=== PATIENT | male | born 1975 | race Caucasian/White ===

== ENCOUNTER 2021-10-20 09:23 | Emergency (ER) | payer BC, OTHER ==
[2021-10-20] MEDS ORDERED: Sodium Chloride 0.9% 10 ML Syringe FLUSH PRN (09:42)
[2021-10-20] MEDS ORDERED: Ondansetron 4 MG/2 ML SDV IVPUSH ONE (09:44)
[2021-10-20] MEDS ORDERED: Sodium Chloride 0.9% 1,000 ML IV SCH (09:45)
[2021-10-20 10:16] LABS: CHLORIDE,CL 103 mmol/L (98-107); SODIUM,NA 141 mmol/L (136-145)
[2021-10-20 10:18] LABS: ANION GAP 16.2 mmol/L (5-15)
--- NOTE | 2021-10-20 10:32 | CR ---
[id number] RAD/RAD Abd Flat and Upright 2V EXAM: RAD Abd Flat and Upright 2V INDICATION: ABDOMINAL PAIN. COMPARISON: None. DISCUSSION: Unobstructed bowel gas pattern. No radiographically evident pneumoperitoneum. IMPRESSION: No acute findings in the abdomen. Riccardo Jones DO 10/20/21 1031 Thank you for allowing us to participate in the care of your patient.
[2021-10-20] MEDS ORDERED: Iopamidol 612 MG/ML 100 ML Bottle IVPUSH ONE (11:02)
--- NOTE | 2021-10-20 11:27 | CT ---
[id number] CT/CT Abdomen Pelvis W IV EXAM: CT Abdomen Pelvis W IV INDICATION: ABDOMINAL PAIN, NAUSEA, VOMITING. COMPARISON: None. DISCUSSION: Fluid-filled nondilated proximal to mid small bowel, favor recent ingestion over an ileus, enteritis or early/partial obstruction. Small fat-containing bilateral inguinal hernias. Mild dependent atelectasis in the lung bases. 11 mm cyst mid to upper pole right kidney. Tiny nonobstructing left intrarenal calculus. Mild hepatic steatosis. Prior appendectomy. Scattered diverticula of the colon without evidence of diverticulitis. Mild chronic appearing lower thoracic compression fractures. The osseous structures are otherwise unremarkable. The pancreas, spleen, gallbladder, and adrenal glands are normal in appearance appearance. No adenopathy, free air free fluid. IMPRESSION: 1. Fluid-filled nondilated proximal to mid small bowel loops. These findings may relate to recent fluid ingestion, but could be seen with enteritis, ileus or very early/partial obstruction. Water-soluble small bowel series could provide further evaluation. Kane Dash MD 10/20/21 0485 Thank you for allowing us to participate in the care of your patient.
--- NOTE | 2021-10-20 11:39 | EDM.PDOC ---
ED HPI GENERAL MEDICAL PROBLEM - General Chief Complaint: Abdominal Pain Stated Complaint: NAUSEA,VOMITING Time Seen by Provider: 10/20/21 09:30 Source of Information: Reports: Patient History Limitations: Reports: No Limitations - History of Present Illness INITIAL COMMENTS - FREE TEXT/NARRATIVE: Pt. presents to ER with complaints of nausea and vomiting, as well as abdominal cramping. Denies any fever or chills. No cough or chest congestion. Denies any chest pain or shortness of breath. Pt. denies any ill contacts. No melena, hematochezia, or hematemesis. Denies any lightheadedness. No palpitations. Pt. has been vaccinated for covid, and has had the virus as well. Pt. states that the symptoms started this AM. He is unsure how many times he has vomited/had diarrhea. Onset: Today Onset Date: 10/20/21 Location: Reports: Abdomen Severity: Moderate Associated Symptoms: Reports: Nausea/Vomiting - Related Data Allergies Allergy/AdvReac Type Severity Reaction Status Date / Time No Known Allergies Allergy Verified 10/31/14 11:53 Home Meds: Home Meds Codeine Phosphate/Guaifenesin [Guaiatussin AC Liquid] 10 ml PO Q6HR PRN #150 liquid 10/31/14 [Rx] Oseltamivir Phosphate [Tamiflu] 75 mg PO BID #10 capsule 10/31/14 [Rx] Past Medical History - Past Health History Medical/Surgical History: Denies Medical/Surgical History ED ROS GENERAL - Review of Systems Review Of Systems: See Below Constitutional: Reports: No Symptoms. Denies: Fever, Chills, Malaise, Weakness, Fatigue HEENT: Reports: No Symptoms Respiratory: Reports: No Symptoms Cardiovascular: Reports: No Symptoms Endocrine: Reports: No Symptoms GI/Abdominal: Reports: Abdominal Pain, Diarrhea, Nausea, Vomiting. Denies: Flavio k Stool, Bloody Stool : Reports: No Symptoms Musculoskeletal: Reports: No Symptoms Skin: Reports: No Symptoms Neurological: Reports: No Symptoms Psychiatric: Reports: No Symptoms Hematologic/Lymphatic: Reports: No Symptoms Immunologic: Reports: No Symptoms ED EXAM, GENERAL - Physical Exam Exam: See Below Exam Limited By: No Limitations General Appearance: Alert, WD/WN, No Apparent Distress Throat/Mouth: Normal Inspection, Normal Lips, Normal Teeth, Normal Gums, Normal Oropharynx, Normal Voice, No Airway Compromise Head: Atraumatic, Normocephalic Neck: Normal Inspection, Supple, Non-Tender, Full Range of Motion Respiratory/Chest: No Respiratory Distress, Lungs Clear, Normal Breath Sounds, No Accessory Muscle Use, Chest Non-Tender Cardiovascular: Normal Peripheral Pulses, Regular Rate, Rhythm, No Edema, No Gallop, No JVD, No Murmur Peripheral Pulses: 4+: Radial (L) GI/Abdominal: Normal Bowel Sounds, Soft, No Organomegaly, No Distention, No Mass, Tender (diffusely tender) (Male) Exam: Deferred Rectal (Males) Exam: Deferred Back Exam: Normal Inspection, Full Range of Motion Extremities: Normal Inspection, Normal Range of Motion, Non-Tender, No Pedal Edema, Normal Capillary Refill Neurological: Alert, Oriented, CN II-XII Intact, Normal Cognition, Normal Reflexes, No Motor/Sensory Deficits Psychiatric: Normal Affect, Normal Mood Skin Exam: Warm, Dry, Intact, Normal Color, No Rash Lymphatic: No Adenopathy Course - Vital Signs Last Recorded V/S: Last Vital Signs Temp 36.9 C 10/20/21 09:30 Pulse 106 H 10/20/21 09:30 Resp 18 10/20/21 09:30 BP 109/74 10/20/21 09:30 Pulse Ox 96 10/20/21 09:30 - Orders/Labs/Meds Orders: Active Orders 24 hr Category Date Time Status Peripheral IV Insertion Adult [OM.PC] Routine Oth 10/20/21 09:42 Ordered Labs: Laboratory Tests 10/20/21 10/20/21 10/20/21 Range/Units 09:52 09:52 09:52 WBC 16.7 H (4.0-10.0) x10^3/uL RBC 5.45 (4.5-6.0) x10^6/uL Hgb 15.6 (14.0-18.0) g/dL Hct 45.3 (40.0-52.0) % MCV 83.1 (78.0-93.0) fL MCH 28.6 (26.0-32.0) pg MCHC 34.4 (32.0-36.0) g/dL RDW Coeff of Doris 13.1 (10.0-15.0) % Plt Count 261 (130-400) x10^3/uL Immature Gran % (Auto) 0.10 (0.00-0.43) % Neut % (Auto) 95.3 H (50.0-80.0) % Lymph % (Auto) 2.1 L (25.0-50.0) % [place] % (Auto) 2.3 (2.0-11.0) % Eos % (Auto) 0.1 (0.0-4.0) % Baso % (Auto) 0.1 L (0.2-1.2) % Neut # (Auto) 15.9 H (1.8-7.7) x10^3/uL Lymph # (Auto) 0.4 L (1.0-4.8) x10^3/uL [place] # (Auto) 0.4 (0.0-0.8) x10^3/uL Eos # (Auto) 0.0 (0.0-0.5) x10^3/uL Baso # (Auto) 0.0 (0.0-0.2) x10^3/uL Immature Gran # (Auto) 0.02 (0.00-0.07) x10^3/uL PT 10.3 (9.9-12.5) SEC INR 0.9 L (2.0-3.5) APTT (25.6-32.8) SEC Sodium 141 (136-145) mmol/L Potassium 4.2 (3.5-5.1) mmol/L Chloride 103 (98-107) mmol/L Carbon Dioxide 26 (21-32) mmol/L Anion Gap 16.2 H (5-15) mmol/L BUN 20 H (7-18) mg/dL Creatinine 1.3 (0.70-1.30) mg/dL Est Cr Clr Drug Dosing TNP Estimated GFR (MDRD) 60 Glucose 138 H (70-99) mg/dL Calcium 9.0 (8.5-10.1) mg/dL Corrected Calcium 8.8 (8.5-10.1) mg/dL Phosphorus 2.0 L (2.6-4.7) mg/dL Magnesium 2.0 (1.8-2.4) mg/dL Total Bilirubin 0.5 (0.2-1.0) mg/dL AST 17 (15-37) U/L ALT 34 (16-63) U/L Alkaline Phosphatase 87 (46-116) U/L C-Reactive Protein 1.0 H (<=0.9) mg/dL Total Protein 8.0 (6.4-8.2) g/dL Albumin 4.2 (3.4-5.0) g/dL Globulin 3.8 Albumin/Globulin Ratio 1.11 Lipase 73 (73-393) U/L SARS CoV-2 RNA Rapid CONCHITA (NEGATIVE) 10/20/21 10/20/21 Range/Units 09:52 09:54 WBC (4.0-10.0) x10^3/uL RBC (4.5-6.0) x10^6/uL Hgb (14.0-18.0) g/dL Hct (40.0-52.0) % MCV (78.0-93.0) fL MCH (26.0-32.0) pg MCHC (32.0-36.0) g/dL RDW Coeff of Doris (10.0-15.0) % Plt Count (130-400) x10^3/uL Immature Gran % (Auto) (0.00-0.43) % Neut % (Auto) (50.0-80.0) % Lymph % (Auto) (25.0-50.0) % [place] % (Auto) (2.0-11.0) % Eos % (Auto) (0.0-4.0) % Baso % (Auto) (0.2-1.2) % Neut # (Auto) (1.8-7.7) x10^3/uL Lymph # (Auto) (1.0-4.8) x10^3/uL [place] # (Auto) (0.0-0.8) x10^3/uL Eos # (Auto) (0.0-0.5) x10^3/uL Baso # (Auto) (0.0-0.2) x10^3/uL Immature Gran # (Auto) (0.00-0.07) x10^3/uL PT (9.9-12.5) SEC INR (2.0-3.5) APTT 22.0 L (25.6-32.8) SEC Sodium (136-145) mmol/L Potassium (3.5-5.1) mmol/L Chloride (98-107) mmol/L Carbon Dioxide (21-32) mmol/L Anion Gap (5-15) mmol/L BUN (7-18) mg/dL Creatinine (0.70-1.30) mg/dL Est Cr Clr Drug Dosing Estimated GFR (MDRD) Glucose (70-99) mg/dL Calcium (8.5-10.1) mg/dL Corrected Calcium (8.5-10.1) mg/dL Phosphorus (2.6-4.7) mg/dL Magnesium (1.8-2.4) mg/dL Total Bilirubin (0.2-1.0) mg/dL AST (15-37) U/L ALT (16-63) U/L Alkaline Phosphatase (46-116) U/L C-Reactive Protein (<=0.9) mg/dL Total Protein (6.4-8.2) g/dL Albumin (3.4-5.0) g/dL Globulin Albumin/Globulin Ratio Lipase (73-393) U/L SARS CoV-2 RNA Rapid CONCHITA Negative (NEGATIVE) Meds: Medications Discontinued Medications Generic Name Dose Route Start Last Admin Trade Name Freq PRN Reason Stop Dose Admin Sodium Chloride 1,000 mls @ 1,000 mls/hr 10/20/21 09:45 Normal Saline IV ASDIRECTED LINH Iopamidol 100 ml 10/20/21 11:02 10/20/21 11:04 Iopamidol 612 Mg/Ml 100 Ml Bottle IVPUSH 10/20/21 11:03 100 ml ONETIME ONE Administration Metoclopramide HCl 10 mg 10/20/21 11:42 Metoclopramide 10 Mg/2 Ml Sdv IVPUSH 10/20/21 11:43 ONETIME ONE Ondansetron HCl 4 mg 10/20/21 09:44 10/20/21 09:45 Ondansetron 4 Mg/2 Ml Sdv IVPUSH 10/20/21 09:45 4 mg ONETIME ONE Administration Sodium Chloride 10 ml 10/20/21 09:42 Sodium Chloride 0.9% 10 Ml Syringe FLUSH ASDIRECTED PRN Keep Vein Open - Radiology Interpretation Free Text/Narrative:: Flat and upright abdominal x-ray is negative. CT abdomen and pelvis with IV contast shows fluid filled proximal and mid bowel loop. No free air. No obvious acute obstruction. Departure - Departure Time of Disposition: 12:00 Disposition: Home, Self-Care 01 Clinical Impression: Gastroenteritis - Discharge Information Instructions: Viral Gastroenteritis, Adult, [id number] Referrals: PCP,None [Primary Care Provider] - Forms: ED Department Discharge Additional Instructions: Home to rest. Clear liquid diet only today. You can start to advance your diet tomorrow if you are able to hold down fluids. Physical exam/CT of you abdomen showed likely viral infection of the GI tract. Start reglan 10mg every 6 hours as needed for nausea/vomiting. Return to ER if you are unable to hold down fluids. Sepsis Event Note (ED) - Focused Exam Vital Signs: Vital Signs Temp Pulse Resp BP Pulse Ox 10/20/21 09:30 36.9 C 106 H 18 109/74 96 - Problem List Review Problem List Initiated/Reviewed/Updated: Yes - My Orders Last 24 Hours: My Active Orders 10/20/21 09:42 Peripheral IV Insertion Adult [OM.PC] Routine - Assessment/Plan Last 24 Hours: My Active Orders 10/20/21 09:42 Peripheral IV Insertion Adult [OM.PC] Routine Plan: Home to rest. Clear liquid diet only today. You can start to advance your diet tomorrow if you are able to hold down fluids. Physical exam/CT of you abdomen showed likely viral infection of the GI tract. Start reglan 10mg every 6 hours as needed for nausea/vomiting. Return to ER if you are unable to hold down fluids.
[2021-10-20] MEDS ORDERED: Metoclopramide 10 MG/2 ML SDV IVPUSH ONE (11:42)
== END 2021-10-20 11:45 | disposition home or self-care (01) ==
LOC: VM.ED 09:23
DX: K52.9 Noninfective gastroenteritis and colitis, unspecified (principal); Z20.822 Contact with and (suspected) exposure to COVID-19
CPT/HCPCS: 74019; 74177; 80053; 83690; 83735; 84100; 85025; 85610; 85730; 86140; 96374; 99284-25; J2405; Q9967; U0002

== ENCOUNTER 2022-05-21 07:13 | Emergency (ER) | payer BC, OTHER ==
[2022-05-21] MEDS ORDERED: Ondansetron 4 MG/2 ML SDV IVPUSH ONE (07:37)
[2022-05-21] MEDS ORDERED: Lactated Ringers 1,000 ML IV ONE (07:37)
[2022-05-21] MEDS ORDERED: Sodium Chloride 0.9% 10 ML Syringe FLUSH PRN (07:37)
== END 2022-05-21 08:48 | disposition home or self-care (01) ==
LOC: VM.ED 07:13
DX: K52.9 Noninfective gastroenteritis and colitis, unspecified (principal)
CPT/HCPCS: 96361; 96374; 99283; 99283-25; J2405; J3490; J7120

== ENCOUNTER 2023-10-07 18:53 | Observation (INO) | payer BC ==
[2023-10-07] MEDS ORDERED: Ondansetron 4 MG/2 ML SDV IVPUSH ONE (19:11)
[2023-10-07] MEDS ORDERED: Sodium Chloride 0.9% 10 ML Syringe FLUSH PRN (19:11)
[2023-10-07] MEDS ORDERED: HYDROmorphone 1 MG/ML Syringe IVPUSH ONE ×3 (19:11→22:27)
[2023-10-07] MEDS ORDERED: Sodium Chloride 0.9% 1,000 ML IV ONE (19:12)
[2023-10-07 19:22] LABS: BASOPHILS PERCENT AUTO 0.2 % (0.2-1.2); EOSINOPHILS ABSOLUTE AUTO 0.1 x10^3/uL (0.0-0.5); EOSINOPHILS PERCENT AUTO 0.5 % (0.0-4.0); HEMATOCRIT 40.7 % (40.0-52.0); IMMATURE GRAN ABSOLUTE AUTO 0.01 x10^3/uL (0.00-0.07); LYMPHOCYTES ABSOLUTE AUTO 2.5 x10^3/uL (1.0-4.8); LYMPHOCYTES PERCENT AUTO 23.9 % (25.0-50.0); MEAN CORPUSCULAR HEMOGLOBIN 29.1 pg (26.0-32.0); MEAN CORPUSCULAR HGB CONC 34.4 g/dL (32.0-36.0); MEAN CORPUSCULAR VOLUME 84.6 fL (78.0-93.0); MONOCYTES PERCENT AUTO 9.5 % (2.0-11.0); NEUTROPHILS ABSOLUTE AUTO 6.9 x10^3/uL (1.8-7.7); NEUTROPHILS PERCENT AUTO 65.8 % (50.0-80.0); PLATELET COUNT,PLT 241 x10^3/uL (130-400); RED BLOOD CELL COUNT 4.81 x10^6/uL (4.5-6.0); WHITE BLOOD CELL COUNT,WBC 10.5 x10^3/uL (4.0-10.0)
[2023-10-07 19:32] LABS: A/G RATIO 1.24; ALANINE AMINOTRANSFERASE,ALT 42 U/L (16-63); ALBUMIN 4.2 g/dL (3.4-5.0); ALKALINE PHOSPHATASE 75 U/L (46-116); ASPARTATE AMNIOTRANSFERASE,AST 22 U/L (15-37); BILIRUBIN TOTAL 0.2 mg/dL (0.2-1.0); BLOOD UREA NITROGEN,BUN 18 mg/dL (7-18); CALCIUM 8.9 mg/dL (8.5-10.1); CARBON DIOXIDE,CO2 26 mmol/L (21-32); CHLORIDE,CL 103 mmol/L (98-107); CREATININE 1.3 mg/dL (0.70-1.30); GLUCOSE RANDOM 116 mg/dL (70-99); POTASSIUM,K 3.6 mmol/L (3.5-5.1); PROTEIN TOTAL,TP 7.6 g/dL (6.4-8.2); SODIUM,NA 142 mmol/L (136-145)
[2023-10-07] MEDS ORDERED: Metoclopramide 10 MG/2 ML SDV IVPUSH ONE ×2 (19:32→23:05)
[2023-10-07 19:35] LABS: ANION GAP 16.6 mmol/L (5-15); C-REACTIVE PROTEIN < 0.50 mg/dL (<=0.50); ESTIMATED GFR 68 mL/min (>=60)
[2023-10-07 20:36] LABS: APPEARANCE,URINE CLEAR (CLEAR); BILIRUBIN,URINE NEGATIVE (NEGATIVE); COLOR,URINE LIGHT YELLOW (YELLOW); GLUCOSE,URINE NEGATIVE (NEGATIVE); KETONES,URINE NEGATIVE (NEGATIVE); LEUKOCYTE ESTERASE,URINE NEGATIVE (NEGATIVE); NITRITE,URINE NEGATIVE (NEGATIVE); OCCULT BLOOD,URINE NEGATIVE (NEGATIVE); PH,URINE 7.5 (5.0-8.0); PROTEIN,URINE NEGATIVE (NEGATIVE); UROBILINOGEN,URINE 0.2 EU/dL (0.2)
[2023-10-07] MEDS ORDERED: HYDROmorphone 0.5 MG/0.5 ML Syringe IVPUSH ONE (21:38)
[2023-10-07] MEDS ORDERED: Tamsulosin 0.4 MG Cap.ER PO ONE (22:27)
[2023-10-07] MEDS ORDERED: Take Home: Acetaminophen/HYDROcodone 325-10 MG, 5 Tab Pack PO ONE (22:28)
[2023-10-07] MEDS ORDERED: Take Home: Ondansetron 4 MG Tab.DIS, 5 Tab Pack PO ONE (22:30)
[2023-10-07] MEDS ORDERED: Ibuprofen 200 MG Tab PO ONE (22:33)
[2023-10-07] MEDS ORDERED: Prochlorperazine 10 MG/2 ML SDV IV ONE (23:36)
[2023-10-07] MEDS ORDERED: Dexamethasone 4 MG/ML SDV IVPUSH ONE (23:37)
[2023-10-07] MEDS ORDERED: Dexamethasone 4 MG/ML SDV ONE (23:42)
[2023-10-07] MEDS ORDERED: Ketorolac 15 MG/ML SDV IVPUSH ONE (23:42)
[2023-10-07] MEDS ORDERED: Sodium Chloride 0.9% 1,000 ML IV SCH (23:45)
[2023-10-08] MEDS ORDERED: Ondansetron 4 MG/2 ML SDV IVPUSH PRN (01:45)
[2023-10-08] MEDS ORDERED: Lactated Ringers 1,000 ML IV ONE (01:46)
[2023-10-08] MEDS: HYDROmorphone 0.5 MG/0.5 ML Syringe IVPUSH PRN ×5 (05:46→19:36)
[2023-10-08] MEDS ORDERED: Prochlorperazine 10 MG/2 ML SDV IV ONE (11:28)
[2023-10-08] MEDS ORDERED: Sodium Chloride 0.9% 1,000 ML IV SCH (13:45)
== END 2023-10-08 20:20 | disposition home or self-care (01) ==
LOC: VM.ED 18:53 → VM.MS 10-08 00:10 → UNDOADMIN 10-08 00:10
PROVIDERS: ADMIT Physician Assistant; ATTEND Physician Assistant
DX: N20.0 Calculus of kidney (principal); Z79.899 Other long term (current) drug therapy
CPT/HCPCS: 74176; 80053; 81003; 85025; 86140; 96374; 96375; 96376; 99285; A9270; G0378; J0780; J1100; J1170; J1885; J2405; J2765; J7030; J7120; Q0162

== ENCOUNTER 2023-10-09 09:08 | Emergency (ER) | payer BC ==
[2023-10-09] MEDS ORDERED: Sodium Chloride 0.9% 10 ML Syringe FLUSH PRN (09:16)
[2023-10-09] MEDS ORDERED: Ondansetron 4 MG/2 ML SDV IVPUSH ONE (09:17)
[2023-10-09] MEDS ORDERED: HYDROmorphone 0.5 MG/0.5 ML Syringe IVPUSH ONE ×3 (09:18→13:54)
[2023-10-09] MEDS ORDERED: Ketorolac 15 MG/ML SDV IVPUSH ONE (09:18)
[2023-10-09 09:23] LABS: BASOPHILS PERCENT AUTO 0.1 % (0.2-1.2); EOSINOPHILS PERCENT AUTO 0.1 % (0.0-4.0); HEMATOCRIT 39.1 % (40.0-52.0); IMMATURE GRAN ABSOLUTE AUTO 0.03 x10^3/uL (0.00-0.07); LYMPHOCYTES ABSOLUTE AUTO 1.3 x10^3/uL (1.0-4.8); LYMPHOCYTES PERCENT AUTO 12.8 % (25.0-50.0); MEAN CORPUSCULAR HEMOGLOBIN 28.8 pg (26.0-32.0); MEAN CORPUSCULAR HGB CONC 33.2 g/dL (32.0-36.0); MEAN CORPUSCULAR VOLUME 86.5 fL (78.0-93.0); MONOCYTES ABSOLUTE AUTO 0.9 x10^3/uL (0.0-0.8); MONOCYTES PERCENT AUTO 8.5 % (2.0-11.0); NEUTROPHILS ABSOLUTE AUTO 8.1 x10^3/uL (1.8-7.7); NEUTROPHILS PERCENT AUTO 78.2 % (50.0-80.0); PLATELET COUNT,PLT 212 x10^3/uL (130-400); RED BLOOD CELL COUNT 4.52 x10^6/uL (4.5-6.0); WHITE BLOOD CELL COUNT,WBC 10.3 x10^3/uL (4.0-10.0)
[2023-10-09] MEDS ORDERED: Sodium Chloride 0.9% 1,000 ML IV SCH (09:30)
[2023-10-09 09:41] LABS: A/G RATIO 1.14; ALANINE AMINOTRANSFERASE,ALT 32 U/L (16-63); ALBUMIN 3.3 g/dL (3.4-5.0); ALKALINE PHOSPHATASE 60 U/L (46-116); ASPARTATE AMNIOTRANSFERASE,AST 18 U/L (15-37); BILIRUBIN TOTAL 0.4 mg/dL (0.2-1.0); BLOOD UREA NITROGEN,BUN 17 mg/dL (7-18); CALCIUM 7.3 mg/dL (8.5-10.1); CARBON DIOXIDE,CO2 24 mmol/L (21-32); CHLORIDE,CL 107 mmol/L (98-107); CREATININE 1.3 mg/dL (0.70-1.30); GLUCOSE RANDOM 117 mg/dL (70-99); POTASSIUM,K 3.2 mmol/L (3.5-5.1); PROTEIN TOTAL,TP 6.2 g/dL (6.4-8.2); SODIUM,NA 140 mmol/L (136-145)
[2023-10-09 09:42] LABS: ANION GAP 12.2 mmol/L (5-15); ESTIMATED GFR 68 mL/min (>=60)
[2023-10-09 09:49] LABS: LACTIC ACID 1.5 mmol/L (0.4-2.0)
== END 2023-10-09 14:20 | disposition home or self-care (01) ==
LOC: VM.ED 09:08
DX: N20.0 Calculus of kidney (principal); Z88.6 Allergy status to analgesic agent
CPT/HCPCS: 80053; 83605; 85025; 86140; 96374; 96375; 96376; 99284-25; J1170; J1885; J2405